=== PATIENT | female | born 1990 | race American Indian/Alaskan Native ===

== ENCOUNTER 2018-06-25 20:33 | Emergency (ER) | payer SELFPAY ==
[2018-06-25 21:55] VITALS: BP 104/57
--- NOTE | 2018-06-26 04:47 | Emergency Department Report ---
Abscess Boil HPI - HPI Chief Complaint: Skin/Abscess/Foreign Body Stated Complaint: LEFT HAND FINGER SWELLING Time Seen by Provider: 06/26/18 04:40 Duration: >1 Week Location: Upper Extremity (left third digit) History: Yes Pain (left third digit) HPI: 27-year-old -[place] female comes in for left third digit swelling and pain since last week. Patient denies any injury. She reports that it's been swollen painful think she has an infection. Patient does admit to biting her fingernails in her cuticles. She reports her pain is a 6 out of 10. She denies any trauma to her finger. Patient has no past medical history no known drug allergies and currently takes no medications on a daily basis. Home Medications: Previous Rx's Medication Instructions Recorded Last Taken Type Ibuprofen [Motrin 600 MG tab] 600 mg PO Q8H PRN #15 tablet 06/26/18 Unknown Rx Sulfamethoxazole/Trimethoprim 1 each PO Q12H #14 tablet 06/26/18 Unknown Rx [Bactrim Ds Tablet] Allergies/Adverse Reactions: Allergies Allergy/AdvReac Type Severity Reaction Status Date / Time No Known Allergies Allergy Unverified 06/25/18 21:54 ED Review of Systems ROS: Stated complaint: LEFT HAND FINGER SWELLING Other details as noted in HPI Skin: other (swelling to the left third digit with pain) ED Past Medical Hx - Past Medical History Previous Medical History?: No - Surgical History Past Surgical History?: No - Social History Smoking Status: Never Smoker Substance Use Type: None - Medications Home Medications: Home Medications Medication Instructions Recorded Confirmed Last Taken Type Ibuprofen [Motrin 600 MG tab] 600 mg PO Q8H PRN #15 tablet 06/26/18 Unknown Rx Sulfamethoxazole/Trimethoprim 1 each PO Q12H #14 tablet 06/26/18 Unknown Rx [Bactrim Ds Tablet] ED Abscess Boil Physical Exam - Exam General: Vital signs noted. No distress. Alert and acting appropriately. Size: 1 cm Exam: Yes Tenderness, Yes Fluctuance, Yes Normal Neurologic Exam, Yes Normal Circulation, No Surrounding Cellulites/Erythema I & D Note - I & D Note I & D Note: DATE OF PROCEDURE: 06/26/18. PREOPERATIVE DIAGNOSES: 1.paronychia. POSTOPERATIVE DIAGNOSES: 1. 2. .........soft tissue infection. Infection appeared to be contained to subcutaneous tissue and there was no evidence of necrotizing soft tissue infection including myonecrosis. OPERATION PERFORMED: Incision and drainage of ..... soft tissue abscess. Provider: Frank Su PA-C. ANESTHESIA: Local. DESCRIPTION OF PROCEDURE: The patient was prepped and draped. Seropurulent, somewhat bloody fluid was noted. The infection appeared contained to a pea ball-sized area in the subcutaneous tissues above the fascia. There was no evidence of myonecrosis, penetration of the fascia or significant extent along the fascia of the infection. We cleaned the area with Betadine and then packed the wound .......... Dry dressings were applied. The patient appeared to tolerate the procedure well. ED Course Vital Signs 06/25/18 21:50 Temperature 98.5 F Pulse Rate 77 Respiratory 18 Rate Blood Pressure 104/57 O2 Sat by Pulse 99 Oximetry Critical care attestation.: If time is entered above; I have spent that time in minutes in the direct care of this critically ill patient, excluding procedure time. ED Medical Decision Making - Medical Decision Making Patient has been evaluated by this provider fast track. Incision and drain of paronychia third digit Patiently placed on Bactrim double strength twice a day 7 days. Ibuprofen for pain management. ED Disposition Clinical Impression: Paronychia of left middle finger Disposition: DC-01 TO HOME OR SELFCARE Is pt being admited?: No Does the pt Need Aspirin: No Condition: Stable Instructions: Paronychia (ED) Additional Instructions: Please take antibiotics as prescribed. Pain medication as needed. If her symptoms persist or gets worse please follow up with her primary care provider. Prescriptions: Ibuprofen [Motrin 600 MG tab] 600 mg PO Q8H PRN #15 tablet PRN Reason: Pain Sulfamethoxazole/Trimethoprim [Bactrim Ds Tablet] 1 each PO Q12H #14 tablet Referrals: PRIMARY CARE, [Primary Care Provider] - 3-5 Days [facility] [Provider Group] - 3-5 Days Forms: Work/School Release Form(ED)
== END 2018-06-26 05:01 | disposition home or self-care (01) ==
LOC: ED 20:33
DX: L03.012 Cellulitis of left finger (principal)
CPT/HCPCS: 99282